=== PATIENT | female | born 1970 | race Caucasian/White ===

== ENCOUNTER 2017-04-05 13:25 | Outpatient (CLI) | payer BC ==
--- NOTE | 2017-04-05 14:49 | MRI ---
MRI BRAIN NONCONTRAST: Clinical history: Memory difficulties. 47-year-old female. FINDINGS: No evidence of ventriculomegaly, mass effect, midline shift or acute territorial infarction. There is no parenchymal hemorrhage. There are minute foci of scattered signal alteration involving the bilate ral cerebral hemispheres. IMPRESSION: 1. No acute intracranial abnormalities. 2. Minimal chronic microvascular ischemic disease. POS: [facility]
== END 2017-04-05 13:26 | disposition home or self-care (01) ==
LOC: SCSMRI 13:25
PROVIDERS: ATTEND Psychiatry & Neurology Neurology
DX: R41.3 Other amnesia (principal)
CPT/HCPCS: 70551

== ENCOUNTER 2018-03-26 14:36 | Outpatient (CLI) | payer BC ==
--- NOTE | 2018-03-26 17:09 | RAD ---
LUMBAR SPINE FOUR VIEW VIEWS: INDICATIONS: Lumbar radiculopathy. FINDINGS: There is mild levocurvature centered at the upper lumbar spine. Multilevel moderate degenerative joselyn nge is present. Flexion and extension views are performed, which reveal no significant abnormal ma slational motion. There is mild retrolisthesis of L1 on L2. No compression deformity. IMPRESSION: 1. Levoscoliosis of the upper lumbar spine and multilevel degenerative change. 2. No significant abnormal translational motion demonstrated with flexion/extension views. POS: [facility]
--- NOTE | 2018-03-26 18:00 | MRI ---
MRI LUMBAR SPINE WITHOUT CONTRAST: INDICATIONS: Low back pain with bilateral lower extremity numbness. COMPARISON: The lumbar spine MRI from 11/01/2011 is unavailable for review, and comparison to the current examina tion. FINDINGS: The visualized retroperitoneum and paravertebral soft tissues are normal appearing. There is loss of normal disk signal an height at all lumbar intervertebral levels, but most pronounce d at L1-L2, L3-L4, and L4-L5. There is very slight retrolisthesis of L3 on L4 and of L1 on L2. The conus is seen to terminate at approximately the expected T12-L1 vertebral level. No acute fracture is evident. At the L5-S1 level, there is mild facet joint degenerative change, and a mild broad-based bulge, but no appreciable central canal or neural foraminal narrowing. At L4-L5, there is a broad-based bulge with facet hypertrophy and ligamentum flavum hypertrophy, sharonda cing mild central canal narrowing and mild bilateral neural foraminal narrowing. At L3-L4, there is a broad-based bulge with facet hypertrophy and ligamentum flavum hypertrophy, sharonda cing mild central canal narrowing and mild bilateral neural foraminal narrowing. At L2-L3, there is mild facet joint degenerative change and broad-based bulge without appreciable clive tral canal or neural foraminal narrowing. At L1-L2, there is a broad-based disk osteophyte complex without appreciable central canal or neural foraminal narrowing. At T11-T12, there is a broad-based bulge but no appreciable central canal or neural foraminal narrowi ng. IMPRESSION: Multilevel spondylosis of the lumbar spine with central canal and neural foraminal narrowing at L3-L4 and L4-L5, as detailed above. POS: [facility]
== END 2018-03-26 14:37 | disposition home or self-care (01) ==
LOC: TBSIIMAG 14:36
PROVIDERS: ATTEND Surgery
DX: M47.26 Other spondylosis with radiculopathy, lumbar region (principal); M54.5 Low back pain; Q76.3 Congenital scoliosis due to congenital bony malformation
CPT/HCPCS: 72110; 72148